=== PATIENT | female | born 1985 | race Caucasian/White ===

== ENCOUNTER 2017-12-10 19:24 | Inpatient (IN) | payer BC ==
--- NOTE | 2017-12-10 20:06 | OBADHP ---
Datetime: 12/10/2017 20:01 Admit Comment, IP Provider: A: 32yo at 38+3 by LMP Active Labor- slow progress compared to exam at 1530 FHT cat 1 Pt coping with labor Low risk CNM client P: Admit to L_D Admission CBC, T_S, RPR Reviewed with client that AROM could help to push labor along, pt is tired, pt agrees EFM per protocol then auscultation per protocol Ambulate, shower, tub as desires Anticipate NSVB Pelvic Type - PN: Adequate Extremities - PN: Normal Abdomen - PN: Normal Back - PN: Normal Breast - PN: Normal Lungs - PN: Normal Heart - PN: Normal Thyroid - PN: Normal Neurologic - PN: Normal HEENT - PN: Normal General - PN: Normal Weight - Estimated: 3300 Presentation-Admit: Vertex FHR - Baseline A Provider: 135 Membranes, Provider: Intact Contraction Comments Provider: Q6min Gestation - Est Wks by US: 38+3 Pool Provider: Negative Vital Signs Provider: Reviewed IP Chief Complaint: Uterine contractions NICHD Variability Prov Fetus A: Moderate 6-25bpm NICHD Accel Fetus A IP Provider: 15X15 FHR Category Provider Fetus A: Category I NICHD Decel Fetus A IP Provider: None Dilatation, Provider: 6 Effacement, Provider: 100 Station, Provider: -1 Genitourinary Exam: Normal DTRs - PN: Normal IP Adm Impression: Term, intrauterine ; Active labor IP Admit Plan: Admit to unit; Initiate labor protocol
[2017-12-10 20:45] VITALS: RESP 20; O2SAT 100
[2017-12-10 20:55] LABS: BASO % 0.2 % (0.0-2.0); EOS # 0.1 K/uL (0.0-0.7); EOS % 0.8 % (0.0-4.0); HEMOGLOBIN 12.7 g/dL (12.0-16.0); LYMPH # 1.8 K/uL (1.0-4.3); LYMPH % 12.4 % (20.0-40.0); MEAN CELL VOLUME 87.8 fl (81.0-99.0); MEAN CORPUSCULAR HEMOGLOBIN 30.9 pg (27.0-31.0); MEAN CORPUSCULAR HGB CONC 35.2 g/dL (33.0-37.0); MONO # 0.9 K/uL (0.0-0.8); NEUT # 11.7 K/uL (1.8-7.0); NEUT % 80.6 % (50.0-75.0); NRBC % 0.1 % (0.0-0.0); RBC 4.1 Mil/uL (3.80-5.20); RED CELL DISTRIBUTION WIDTH 19.7 % (11.5-14.5); WHITE BLOOD COUNT 14.5 K/uL (4.8-10.8)
[2017-12-10] MEDS ORDERED: Lidocaine 2% MPF (5 ml) Inj ONE (21:22)
[2017-12-10] MEDS ORDERED: Oxytocin 10 Units/ml Inj ONE (21:24)
--- NOTE | 2017-12-10 21:42 | OBPN ---
Datetime: 12/10/2017 21:10 IP Progress Impression: Rupture of membranes IP Procedures: Artificial ROM IP Progress Plan: Continue present management Membranes, Provider: Ruptured Amniotic Fluid Color, Provider: Clear IP Progress Note Comment: A: Slow progress upon admt, AROM, clear fluid, FHT cat 1 after 40 min post rupture P: Pt transitioned auscultation q30min first stage, Q5min second stage Encouraged ambulation, dancing with UC, hoping for closer pattern of UCs PO Fluids Vital Signs Provider: Reviewed Datetime: 12/10/2017 20:01 Pool Provider: Negative Contraction Comments Provider: Q6min FHR - Baseline A Provider: 135 Gestation - Est Wks by US: 38+3 Weight - Estimated: 3300 Presentation-Admit: Vertex NICHD Accel Fetus A IP Provider: 15X15 FHR Category Provider Fetus A: Category I NICHD Variability Prov Fetus A: Moderate 6-25bpm Dilatation, Provider: 6 Effacement, Provider: 100 Station, Provider: -1 NICHD Decel Fetus A IP Provider: None
--- NOTE | 2017-12-10 21:48 | OBPN ---
Datetime: 12/10/2017 21:41 FHR - Baseline A Provider: 140 by doppler IP Progress Note Comment: UC pattern closer now, Pt into tub, 100F, pt reports relief
--- NOTE | 2017-12-10 21:51 | OBPN ---
Datetime: 12/10/2017 20:30 IP Progress Note Comment: Reviewed strip with RN. Making plan for AROM. RN requests to wait for AROM Until finished charting. To room and AROM clear, small amount at 2034. Pt onto her feet to encourage descent.
--- NOTE | 2017-12-10 22:20 | OBPN ---
Datetime: 12/10/2017 22:17 FHR - Baseline A Provider: 155 by doppler IP Progress Note Comment: Pt remains in tub. Says she feels some nausea. UC pattern consistent and s terrance. Plan to assess cervical change around 2230.
--- NOTE | 2017-12-10 23:05 | OBPN ---
Datetime: 12/10/2017 22:40 IP Progress Impression: Normal progression of labor IP Procedures: Sterile Vag Exam IP Progress Plan: Continue present management FHR - Baseline A Provider: 155 by doppler IP Progress Note Comment: A: Normal progress of labor- transitional labor Pt having diffculty coping with labor pain FHR reassuring P: Nitrous for pain relief- pt out of tub to try to rest in between Encourage PO hydration, freedom of movement Plan to assess cervix again in 2 hours and anticipate full dilation NICHD Accel Fetus A IP Provider: 100 Dilatation, Provider: 8 Effacement, Provider: 100 Station, Provider: -1
--- NOTE | 2017-12-10 23:18 | OBPN ---
Datetime: 12/10/2017 23:16 FHR - Baseline A Provider: 155 by doppler IP Progress Note Comment: Pt out of tub. Left side lying in bed. Using nitrous oxide with relief. En couraged pt to try to take small nap in between UC.
--- NOTE | 2017-12-10 23:38 | OBPN ---
Datetime: 12/10/2017 23:35 FHR - Baseline A Provider: 152 by doppler IP Progress Note Comment: Pt with good relief with nitrous. Resting in between contractions. Plan to continue pt use of nitrous until about 0030 at which time I usman reexamine her to assess for cervical change.
--- NOTE | 2017-12-11 00:35 | OBPN ---
Datetime: 12/11/2017 00:31 IP Progress Impression: Normal progression of labor IP Procedures: Sterile Vag Exam IP Progress Plan: Continue present management FHR - Baseline A Provider: 150 IP Progress Note Comment: Pt called for CNM as nitrous was not sufficient for pain relief. Plan SVE. Pt has made good change. Encouraged position to hands and knees to assist last bit of cervx away. Re bozo done to encouraged descent and proper positioning. Pt agree able. FHT reassuring. Pt progressing to urge to push. Dilatation, Provider: 10 Effacement, Provider: 100 Station, Provider: 0
--- NOTE | 2017-12-11 00:53 | OBPN ---
Datetime: 12/11/2017 00:50 IP Progress Impression: Normal progression of labor IP Procedures: Sterile Vag Exam IP Progress Plan: Continue present management FHR - Baseline A Provider: 134 IP Progress Note Comment: Pt with strong urge to push. Begin pushing now. FHR reassuring by doppler Dilatation, Provider: 10 Effacement, Provider: 100 Station, Provider: 0
[2017-12-11] MEDS ORDERED: Oxycodone/Acetaminophen 5/325 mg Tab PO PRN ×2 (02:22→05:19)
[2017-12-11] MEDS ORDERED: Benzocaine/Menthol SPRAY TOP PRN (02:22)
[2017-12-11] MEDS ORDERED: Oxytocin 10 Units/ml Inj IM ONE (02:26)
--- NOTE | 2017-12-11 02:59 | OBDS ---
DELIVERY PERSONNEL Delivery Doctor: Marcie Shut Off Worker: Loreta Beasley RN MATERNAL INFORMATION Delivery Anesthesia: Local Medications in Delivery: Piotcin 10units IM, Cytotec 600mg PA, Cytotec 400mg PO Estimated Blood Loss (ml): 700 Placenta Cultured: No Maternal Complications: None Provider Comments: of viable male from [facility] at 0132. Allowed for restitution and body del ivered easily. Possible compound hand in posterior vagina. Infant to maternal abd. Vigorous cry immed ately. Awaited placenta. Delivered Liu , 3vc, intact. Brisk bright red bleeding. Gave 10 units IM pit. Noted loss of urine as well. Uterus Firm at U off to right, Massaged to firmness. Noted additio nal bright red bleeding. Gave cytotec 400 PO and 600 PA. Perineum inspected and noted labial and firs t degree perineal laceraton. Repired with vicryl suture. EBL 700ml. Pt hemodynamcally stable. Assiste d pt to latch infant. LABOR SUMMARY EDC: 12/21/2017 00:00 No. Babies in Womb: 1 Attempted: No Labor Anesthesia: None LABOR INFORMATION Reason for Induction: Not Applicable Onset of Labor: 12/10/2017 08:30 Complete Dilatation: 12/11/2017 00:31 Oxytocin: N/A Group B Beta Strep: Negative Antibiotics # of Doses: n/a Antibiotics Time of Last Dose: n/a Steroids Given: None Reason Steroids Not Administered: Not Applicable MEMBRANES Membranes Rupture Method: Artificial Rupture of Membranes: 12/03/2017 20:33 Length of Rupture (hrs): 172.98 Amniotic Fluid Color: Bloody Amniotic Fluid Amount: Small Amniotic Fluid Odor: Normal STAGES OF LABOR Stage 1 hrs: 16 Stage 1 min: 1 Stage 2 hrs: 1 Stage 2 min: 1 Stage 3 hrs: -167 Stage 3 min: -46 Total Time in Labor hrs: -150 Total Time in Labor min: -44 VAGINAL DELIVERY Episiotomy: None Laceration Extension: First Degree Laceration Type: Perineal Other Laceration: R labial laceration Laceration Repair: Yes Laceration Repair Note: Repaired labia with three interrupted stitches. Approximated perineum with a series of interrupted stitches. Initial Vag Sponge Count: 15 Final Vag Sponge Count: 15 Initial Vag Sharps Count: 3 Final Vag Sharps Count: 3 Sponge Count Correct: Yes Sharps Count Correct: Yes Count Comment: count correct BABY A INFORMATION Delivery Date/Time: 12/11/2017 01:32 Method of Delivery: Vaginal Born in Route : No : N/A Forceps: N/A Vacuum Extraction: N/A Shoulder Dystocia : No SHOULDER DYSTOCIA BABY A Infant Delivery Date/Time: 12/11/2017 01:32 PRESENTATION/POSITION BABY A Presentation: Cephalic Cephalic Presentation: Vertex Vertex Position: Left Occipital Anterior PLACENTA INFORMATION BABY A Placenta Delivery Time : 12/04/2017 01:46 Placenta Method of Delivery: Spontaneous Placenta Status: Delivered SCORES BABY A Heart Rate 1 min: >100 bpm Resp Effort 1 min: Good Cry Reflex Irritability 1 min: Cough or Sneeze or Pulls Away Muscle Tone 1 min: Active Motion Color 1 min: Body Frohna, Extremities Blue Resuscitation Effort 1 min: Tactile Stimulation SCORE 1 MIN: 9 Heart Rate 5 min: >100 bpm Resp Effort 5 min: Good Cry Reflex Irritability 5 min: Cough or Sneeze or Pulls Away Muscle Tone 5 min: Active Motion Color 5 min: Body Frohna, Extremities Blue Resuscitation Effort 5 min: N/A SCORE 5 MIN: 9 INFANT INFORMATION BABY A Gestational Age at Delivery: 38.4 Gestational Status: Term Infant Outcome : Liveborn Infant Condition : Stable Infant Sex: Male IDENTIFICATION/MEDS BABY A ID Band Number: [id number] ID Band Location: Left Leg; Left Arm WEIGHT/LENGTH BABY A Birthweight (gms): 3710 Infant Weight (lb): 8 Weight (oz): 3 CORD INFORMATION BABY A No. Cord Vessels: 3 Nuchal Cord : N/A Cord Blood Taken: Yes Infant Suction: None ASSESSMENT BABY A Complications: None Physical Findings at Delivery: Within Normal Limits Respirations: Appears Normal Decator Operator/ALS Called : No Care By: Marcie/Dave Transferred To: Remains with Mother
[2017-12-11] MEDS ORDERED: Levothyroxine 112 MCG TAB PO SCH (06:30)
[2017-12-11] MEDS: Levothyroxine 112 MCG TAB PO SCH (06:43)
[2017-12-11 11:57] LABS: BASO # 0.1 K/uL (0.0-0.2); BASO % 0.4 % (0.0-2.0); EOS # 0.1 K/uL (0.0-0.7); EOS % 0.6 % (0.0-4.0); HEMOGLOBIN 10.8 g/dL (12.0-16.0); LYMPH # 2.2 K/uL (1.0-4.3); LYMPH % 12.9 % (20.0-40.0); MEAN CELL VOLUME 88.8 fl (81.0-99.0); MEAN CORPUSCULAR HGB CONC 34.9 g/dL (33.0-37.0); MEAN PLATELET VOLUME 8.6 fl (7.2-11.7); MONO # 1.6 K/uL (0.0-0.8); MONO % 9.5 % (0.0-10.0); NEUT # 12.7 K/uL (1.8-7.0); NEUT % 76.6 % (50.0-75.0); RBC 3.49 Mil/uL (3.80-5.20); RED CELL DISTRIBUTION WIDTH 18.9 % (11.5-14.5); WHITE BLOOD COUNT 16.6 K/uL (4.8-10.8)
[2017-12-11] MEDS: Benzocaine/Menthol SPRAY TOP PRN (21:53)
[2017-12-12] MEDS: Levothyroxine 112 MCG TAB PO SCH (06:07)
--- NOTE | 2017-12-12 11:35 | OBPPN ---
Datetime: 12/12/2017 11:29 PP Pain Prov: Within normal limits PP Nausea Prov: Denies PP Flatus Prov: Yes PP BM Prov: No PP Breasts Prov: Normal PP Heart Prov: Not Done PP Lungs Prov: Not Done PP Abdomen/Uterus Prov: Normal PP Lochia Prov: Normal PP Vulva/Perineum Prov: Normal PP CVA Tenderness Prov: Normal PP Extremities Prov: Normal PP C/S Incision Prov: Not Applicable PP Progress Prov: Normal PP Impression Prov: Normal progression PP Plan Prov: Continue present management IP PP Procedures: None
--- NOTE | 2017-12-12 11:41 | OBDCSUM ---
Datetime: 12/12/2017 11:33 Discharged to, Provider: Home Follow up at, Provider: MARCY Disch Instr Activity: Normal activity Disch Instr Diet: Regular Discharge Instructions, Provider: Routine instructions given Discharge Diagnosis, Provider: Term Delivered Discharge Time: 12/13/2017 08:00 Follow up in weeks, Provider: 7 days Disch Referrals: None Contraception discussed, Prov: No Discharge Comment, Provider: No bath or driving for one week. As much rest as possible. Call with an y new or worsening symptoms, increased bleeding, or lactations difficulties. Take Floradix, PNV, meet min D, adn probiotic daily. Follow up in our office in one week.
[2017-12-12] MEDS: Benzocaine/Menthol SPRAY TOP PRN (15:49)
[2017-12-13] MEDS: Levothyroxine 112 MCG TAB PO SCH (06:28)
[2017-12-13 17:51] VITALS: BP 110/68; PULSE 77; TEMP 98.2
[2017-12-13] MEDS ORDERED: Alum-Mag Hydrox-Simethicone Susp (30 mL) PO ONE (20:12)
== END 2017-12-13 13:15 | disposition home or self-care (01) | DRG 775 ==
LOC: H.EROB2 19:24 → H.L&D 20:11 → H.OB/GYN 12-11 04:45
PROVIDERS: ADMIT Nurse Practitioner Women's Health; ATTEND Nurse Practitioner Women's Health
PROC: 10E0XZZ Delivery of Products of Conception, External Approach (ICD-10-PCS; principal; 2017-12-11)
PROC: 0HQ9XZZ Repair Perineum Skin, External Approach (ICD-10-PCS; 2017-12-11)
PROC: 10907ZC Drainage of Amniotic Fluid, Therapeutic from Products of Conception, Via Natural or Artificial Opening (ICD-10-PCS; 2017-12-11)
DX: O70.0 First degree perineal laceration during delivery (principal); Z37.0 Single live birth; Z3A.38 38 weeks gestation of pregnancy